=== PATIENT | male | born 1950 | race American Indian/Alaskan Native ===

== ENCOUNTER 2019-05-27 08:33 | Outpatient (CLI) | payer MEDICARE ==
--- NOTE | 2019-05-27 09:51 | Fluoroscopy Report ---
BARIUM SWALLOW Indication: R13.01) DYSPHAGIA/N18.9 CKD/HX: COLON POLYPS/I73.9) PVD. Technique: Single contrast barium technique utilized to evaluate the esophagus. FINDINGS: To begin the exam, swallowing was evaluated in the lateral position under direct fluorosco py. Swallowing was normal. 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 The patient was unable to pass a barium tablet pass this stricture. A 5 minute delayed BRUNEIAN drinking radiograph was also obtained wh ich demonstrates persistence of the tablet in the mid to distal esophagus. Stenosis in this area is e stimated at 50-75%. There is delayed emptying of the esophagus throughout this exam. Occasional terti edna contractions were also witnessed. No evidence for irregular esophageal mass, ring, web or hiatal hernia. 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 Fluoroscopic time: 3.3 minutes Number of fluoroscopic images: 46 Signer Name: Demond Tomlinson Jr, MD Signed: 05/27/2019 9:47 AM Workstation Name: [id number]
== END 2019-05-27 08:34 | disposition home or self-care (01) ==
LOC: FLUORO 08:33
PROVIDERS: ATTEND Internal Medicine Gastroenterology
DX: K22.2 Esophageal obstruction (principal); I12.9 Hypertensive chronic kidney disease with stage 1 through stage 4 chronic kidney disease, or unspecified chronic kidney disease; N18.9 Chronic kidney disease, unspecified; I73.9 Peripheral vascular disease, unspecified; K21.9 Gastro-esophageal reflux disease without esophagitis; E78.00 Pure hypercholesterolemia, unspecified
CPT/HCPCS: 74220

== ENCOUNTER 2020-09-27 14:41 | Outpatient (CLI) | payer MEDICARE ==
--- NOTE | 2020-09-27 15:24 | Ultrasound Report ---
ULTRASOUND BREAST RIGHT LIMITED, 09/27/2020 CLINICAL INFORMATION / INDICATION: RT BREAST LUMP. TECHNIQUE: Targeted ultrasound evaluation was performed of the area of interest. COMPARISON: Bilateral mammography 07/19/20. FINDINGS: There is moderate flame-shaped hypoechoic fibroglandular tissue in the right subareolar region at the site of the palpable abnormality. Minimal scattered vascularity is present on Doppler exam. There is no evidence of a discrete mass, architectural distortion or posterior shadowing. IMPRESSION: Findings characteristic of right gynecomastia. No sonographic evidence of malignancy. Follow up recommendation: Clinical exam BI-RADS Category 2: Benign. A normal or "negative" report should not preclude biopsy or follow-up of a clinically suspicious find ing. Signer Name: Calderon Weir MD Signed: 09/27/2020 3:20 PM Workstation Name: [id number]
== END 2020-09-27 14:42 | disposition home or self-care (01) ==
LOC: SPVWC 14:41
PROVIDERS: ATTEND Surgery
DX: N63.10 Unspecified lump in the right breast, unspecified quadrant (principal); R92.8 Other abnormal and inconclusive findings on diagnostic imaging of breast